=== PATIENT | female | born 1990 | race Hispanic/Latino ===

== ENCOUNTER 2022-07-05 11:23 | Inpatient (IN) | payer MEDICAID, OTHER, SELFPAY ==
[2022-07-06 03:24] VITALS: BMI 30.6
[2022-07-06] MEDS ORDERED: Acetaminophen 500 MG TAB PO PRN (04:07)
[2022-07-06] MEDS ORDERED: hydrALAZINE 20 MG/ML VIAL SLOW IVP PRN ×2 (04:07→10:53)
[2022-07-06] MEDS ORDERED: Lidocaine 1% (PF) 30 ML VIAL SC PRN (04:07)
[2022-07-06] MEDS ORDERED: Diphenoxylate HCl/Atropine Tablet PO PRN (04:07)
[2022-07-06] MEDS ORDERED: Promethazine HCl 25 MG/ML VIAL IM PRN ×2 (04:07→10:53)
[2022-07-06] MEDS ORDERED: Misoprostol 200 MCG TAB PR PRN (04:07)
[2022-07-06] MEDS ORDERED: Carboprost 250 MCG/ML AMP IM PRN (04:07)
[2022-07-06] MEDS ORDERED: Methylergonovine 0.2 MG/ML VIAL IM PRN ×2 (04:07→10:53)
[2022-07-06] MEDS ORDERED: Ibuprofen 800 MG TAB PO PRN (04:07)
[2022-07-06] MEDS ORDERED: Ondansetron PF 4 MG/2 ML Vial IVP PRN ×2 (04:07→10:53)
[2022-07-06] MEDS ORDERED: NS w/ Oxytocin 30 units 500 ML IV SCH ×3 (04:30→10:53)
[2022-07-06] MEDS ORDERED: Lactated Ringer's 1,000 ML IV SCH (04:30)
[2022-07-06 04:56] LABS: Hemoglobin 12.7 g/dL (12.0-15.5); Mean Corpuscular HGB CONC 35.4 g/dL (32.0-36.0); Mean Corpuscular Hemoglobin 33.4 pg (27.0-33.0); Mean Corpuscular Volume 94.5 fl (81.6-98.3); Mean Platelet Volume 10.7 fl (7.4-10.4); Platelet Count 202 10x3/uL (150-450); RBC Distribution Width 13.7 % (11.5-14.5); White Blood Cell (WBC) Count 6.3 10x3/uL (3.5-10.5)
[2022-07-06 05:06] LABS: HBSAg Index 0.16 S/CO (0-0.99); Hep B Surf Ag Non-Reactive S/CO (NonReactive)
[2022-07-06 05:07] LABS: Syphilis Antibody Nonreactive (Nonreactive); Syphilis Antibody Index 0.05 S/CO (<1.00 Non-Reactive)
[2022-07-06 05:12] LABS: SARS-CoV-2 NAA Rapid Test Not Detected (NotDetected)
[2022-07-06] MEDS ORDERED: Bisacodyl 10 MG SUPP PR PRN (10:53)
[2022-07-06] MEDS ORDERED: Misoprostol 200 MCG TAB VAG PRN (10:53)
[2022-07-06] MEDS ORDERED: Boostrix 0.5 ML (Tdap) VIAL (>/=7 yrs of age) IM ONE (10:53)
[2022-07-06] MEDS ORDERED: Milk Of Magnesia 30 ML UDCUP PO PRN (10:53)
[2022-07-06] MEDS ORDERED: Benzocaine-Menthol 82.5 ML CAN TOP PRN (10:53)
[2022-07-06] MEDS ORDERED: Lanolin Ointment 7 GM TUBE TOP PRN (10:53)
[2022-07-06] MEDS ORDERED: Preparation H Ointment 28 GM TUBE PR PRN (10:53)
[2022-07-06] MEDS ORDERED: diphenhydrAMINE 25 MG CAP PO PRN (10:53)
[2022-07-06] MEDS ORDERED: HYDROcodone/Acetaminophen 5/325 mg Tablet PO PRN ×2 (10:53)
[2022-07-06] MEDS: Ibuprofen 800 MG TAB PO SCH ×2 (11:00→21:34)
[2022-07-06] MEDS: Docusate 100 MG CAP PO SCH (21:35)
[2022-07-06] MEDS: Ferrous Sulfate 325 MG TAB PO SCH (22:51)
[2022-07-07] MEDS: Ibuprofen 800 MG TAB PO SCH ×3 (04:59→21:34)
[2022-07-07] MEDS: Ferrous Sulfate 325 MG TAB PO SCH ×2 (07:57→17:33)
[2022-07-07] MEDS: Docusate 100 MG CAP PO SCH ×2 (08:20→21:35)
[2022-07-07] MEDS: Prenatal Vitamin 1 TAB PO SCH (08:20)
[2022-07-08] MEDS: Ibuprofen 800 MG TAB PO SCH ×2 (05:17→13:42)
[2022-07-08] MEDS: Ferrous Sulfate 325 MG TAB PO SCH ×2 (07:23→14:52)
[2022-07-08] MEDS: Prenatal Vitamin 1 TAB PO SCH (07:48)
[2022-07-08] MEDS: Docusate 100 MG CAP PO SCH (07:48)
[2022-07-08 08:26] VITALS: BP 100/63; TEMP 98.1
== END 2022-07-08 17:50 | disposition home or self-care (01) | DRG 807 ==
LOC: CSHLD 07-06 02:33 → CSHPP 07-06 12:50
PROVIDERS: ADMIT Family Medicine; ATTEND Family Medicine
PROC: 10E0XZZ Delivery of Products of Conception, External Approach (ICD-10-PCS; principal; 2022-07-06)
PROC: 0HQ9XZZ Repair Perineum Skin, External Approach (ICD-10-PCS; 2022-07-06)
PROC: 3E033VJ Introduction of Other Hormone into Peripheral Vein, Percutaneous Approach (ICD-10-PCS; 2022-07-06)
DX: O70.0 First degree perineal laceration during delivery (principal); Z37.0 Single live birth; Z3A.39 39 weeks gestation of pregnancy; Z20.822 Contact with and (suspected) exposure to COVID-19
CPT/HCPCS: 85027; 86780; 86850; 86900; 86901; 87340; J2590; U0002